=== PATIENT | male | born 1975 | race Caucasian/White ===

== ENCOUNTER 2019-03-23 03:25 | Emergency (ER) | payer BC, OTHER ==
[2019-03-23 04:45] LABS: ABSOLUTE BASOPHILS # (AUTO) 0.1 10^3/uL (0.0-0.2); ABSOLUTE EOSINOPHILS # (AUTO) 0.4 10^3/uL (0.0-0.6); ABSOLUTE LYMPHOCYTES (AUTO) 2.1 10^3/uL (0.5-4.7); ABSOLUTE MONOCYTES (AUTO) 0.8 10^3/uL (0.1-1.4); ABSOLUTE NEUT (AUTO) 3.2 10^3/uL (1.7-8.2); BASOPHILS % (AUTO) 0.8 % (0-2); EOSINOPHILS % (AUTO) 5.9 % (0-6); HEMATOCRIT 47.8 % (37.9-51.0); HEMOGLOBIN 16.6 g/dL (13.5-17.0); LYMPHOCYTES % (AUTO) 32.4 % (13-45); MEAN CORPUSCULAR HEMOGLOBIN 32.3 pg (27.0-33.4); MEAN CORPUSCULAR HGB CONC 34.8 g/dL (32.0-36.0); MEAN CORPUSCULAR VOLUME 93 fl (80-97); MONOCYTES % (AUTO) 11.7 % (3-13); PLATELET COUNT 297 10^3/uL (150-450); RED BLOOD COUNT 5.15 10^6/uL (4.35-5.55); RED CELL DISTRIBUTION WIDTH 13.2 % (11.5-14.0); SEGMENTED NEUTROPHILS % (AUTO) 49.2 % (42-78); TOTAL CELLS COUNTED % (AUTO) 100 %; WHITE BLOOD COUNT 6.5 10^3/uL (4.0-10.5)
[2019-03-23 04:54] LABS: ALKALINE PHOSPHATASE 45 U/L (38-126); ANION GAP 8 (5-19); ASPARTATE AMINO TRANSFERASE 43 U/L (17-59); BILIRUBIN,TOTAL 0.4 mg/dL (0.2-1.3); BLOOD UREA NITROGEN 15 mg/dL (7-20); CALCIUM 9.9 mg/dL (8.4-10.2); CARBON DIOXIDE 29 mmol/L (22-30); CHLORIDE 101 mmol/L (98-107); CREATINE KINASE 332 U/L (55-170); GLUCOSE 89 mg/dL (75-110); POTASSIUM 4.2 mmol/L (3.6-5.0); TOTAL PROTEIN 6.8 g/dL (6.3-8.2)
[2019-03-23 05:04] LABS: CREATINE KINASE MB 1.18 ng/mL (<4.55)
[2019-03-23 05:06] LABS: TROPONIN I < 0.012 ng/mL
--- NOTE | 2019-03-23 05:17 | RADIOLOGY REPORT (SQ) ---
EXAM DESCRIPTION: XR CHEST 2 VIEWS COMPLETED DATE/TME: 03/23/2019 00:00 CLINICAL HISTORY: 44 years, Male, CHEST PAIN COMPARISON: None. NUMBER OF VIEWS: Two TECHNIQUE: Two views of the chest LIMITATIONS: None. FINDINGS: The lungs are clear. The heart is normal in size. There is no pneumothorax or pleural effusion. There is no fracture IMPRESSION: No acute cardiopulmonary abnormality. copyright 2010 [employer] All Rights Reserved
--- NOTE | 2019-03-23 10:27 | ER Document Report ---
ED General - General Chief Complaint: Chest Pain Stated Complaint: CHEST PAIN,DIFFICULTY BREATHING Time Seen by Provider: 03/23/19 10:05 Mode of Arrival: Ambulatory Information source: Patient Notes: 44-year-old white male arrives after having anterior chest pain which began as left superior scapular pain around midnight hours patient has a history of atrial fibrillation and has been evaluated on and off for 1 year after he retired from the . He has been evaluated at [facility] and was last seen 1 month ago. Patient's lab were positive for CPK but troponins were negative x2. Patient continues to have pain with shortness of breath and diaphoresis for the last 7 hours. His pain is 8 out of 10. For this reason I called Dr. Brantley spine supervisor at 1015 and he advised CTA to rule out any vascular lesion associated with weight lifting. Patient reports he has pain medicine intolerance because of 9 surgeries in the past to include right upper arm with plates and screws and low back surgery. He is tried multiple medicines including Toradol and Atarax and Bentyl without relief. [place] but is willing to do the CT scan today. His blood pressure was elevated and he takes Adderall and has a history of having erroneous BPs because of his large arms" TRAVEL OUTSIDE OF THE [place] IN LAST 30 DAYS: No - HPI Onset: This morning Onset/Duration: Sudden Quality of pain: Achy Severity: Severe Pain Level: 5 Associated symptoms: Body/muscle aches, Chest pain, Hurts to breath, Shortness of breath, Sweating. denies: Allergy/hay fever, Chills, Nonproductive cough, Productive cough, Diarrhea, Nausea, Vomiting Exacerbated by: Denies Relieved by: Denies Similar symptoms previously: Yes Recently seen / treated by doctor: Yes - Related Data Allergies/Adverse Reactions: No Known Allergies Allergy (Verified 03/23/19 03:45) Home Medications: ADDERALL Past Medical History - General Information source: Patient - Social History Smoking Status: Never Smoker Cigarette use (# per day): No Chew tobacco use (# tins/day): No Smoking Education Provided: No Frequency of alcohol use: Occasional Drug Abuse: None Lives with: Family Family History: Reviewed & Not Pertinent Patient has suicidal ideation: No Patient has homicidal ideation: No - Past Medical History Cardiac Medical History: Reports: Hx Atrial Fibrillation Pulmonary Medical History: Reports: None EENT Medical History: Reports: None Neurological Medical History: Reports: None, Hx Migraine Psychiatric Medical History: Reports: Hx Depression Past Surgical History: Reports: Hx Orthopedic Surgery - right arm - Immunizations Hx Diphtheria, Pertussis, Tetanus Vaccination: Yes Review of Systems - Review of Systems Constitutional: See HPI EENT: No symptoms reported Cardiovascular: Chest pain, Palpitations Respiratory: See HPI, Short of breath Gastrointestinal: No symptoms reported Genitourinary: No symptoms reported Male Genitourinary: No symptoms reported Musculoskeletal: Back pain - Left superior scapular pain as well as associated left anterior chest pain Skin: No symptoms reported Hematologic/Lymphatic: No symptoms reported Neurological/Psychological: No symptoms reported Physical Exam - Vital signs Vitals: Temp Pulse Resp BP Pulse Ox 98.6 F 84 16 170/96 H 96 03/23/19 03:53 03/23/19 03:53 03/23/19 03:53 03/23/19 03:53 03/23/19 03:53 Interpretation: Hypertensive - General General appearance: Alert In distress: Mild - HEENT Head: Normocephalic Eyes: Normal Conjunctiva: Normal Cornea: Normal Extraocular movements intact: Yes Eyelashes: Normal Pupils: PERRL Ears: Normal Sinus: Normal Nasal: Normal Mouth/Lips: Normal - Respiratory Respiratory status: No respiratory distress Chest status: Nontender Breath sounds: Normal Chest palpation: Normal - Cardiovascular Rhythm: Irregularly irregular Heart sounds: Normal auscultation Murmur: No Friction rub: No Lux's crunch: No - Abdominal Inspection: Normal Distension: No distension Bowel sounds: Normal Tenderness: Nontender Organomegaly: No organomegaly - Back Back: Normal - Extremities General upper extremity: Normal inspection General lower extremity: Normal inspection Shoulder: Normal Arm: Normal Elbow: Normal Forearm: Normal - Neurological Neuro grossly intact: Yes Cognition: Normal Orientation: AAOx4 Noa Coma Scale Eye Opening: Spontaneous [place] Coma Scale Verbal: Oriented Speech: Normal Cranial nerves: Normal - Psychological Associated symptoms: Normal affect - Skin Skin Temperature: Warm Course - Vital Signs Vital signs: Temp Pulse Resp BP Pulse Ox 98.6 F 80 16 143/92 H 98 03/23/19 03:53 03/23/19 10:44 03/23/19 10:44 03/23/19 10:44 03/23/19 10:44 - Laboratory Result Diagrams: 03/23/19 04:15 03/23/19 04:15 Laboratory results interpreted by me: 03/23/19 04:15 Creatine Kinase 332 H Critical Care Note - Critical Care Note Total time excluding time spent on procedures (mins): 90 Comments: I advised the patient to follow-up with Dr. Brantley spine supervisor and also will need BP medicines if continues to have hypertension. Left the patient has chosen to leave the facility against medical advice. The relevant issues have been reviewed and discussed with the patient and family at the bedside. At the time of this assessment there is no indication for involuntary commitment. The patient is alert, oriented, and able to express clearly their reasoning for not wanting to remain in the emergency department for further treatment. The patient is not clinically psychotic, intoxicated, and denies and suicidal ideation. Differential or suspected diagnoses based on medical screening exam: . The patient is aware of the concerning diagnoses and acknowledges understanding of the reasons for the following recommendations: The following recommendations/services were offered and refused: The following risks were explained: , permanent disability, loss of function Clinical impression: Patient is competent to make decisions regarding the medical that is being offered. Discharge - Discharge Clinical Impression: Chest pain at rest, Elevated CPK Hypertension Qualifiers: Hypertension type: unspecified Qualified Code(s): I10 - Essential (primary) hypertension Condition: Fair Disposition: AGAINST MEDICAL ADVICE Additional Instructions: Follow-up with with Dr. Brantley in his office return to ER as needed take medicines as directed and to ER as needed call back for CT results because you are signing out AMA Prescriptions: Lisinopril/Hydrochlorothiazide [Lisinopril-Hctz 20-25 mg Tab] 1 each PO DAILY #30 tablet Etodolac [Lodine] 400 mg PO BID #14 tablet Chlorzoxazone [Parafon Forte Dsc 500 Mg Tablet] 500 mg PO BID PRN 7 Days #14 tablet PRN Reason:
[2019-03-23] MEDS ORDERED: KETOROLAC TROMETHAMINE INJ/PF 30 MG/1 ML SDV IV ONE (10:43)
[2019-03-23 10:44] VITALS: BP 143/92
--- NOTE | 2019-03-23 13:18 | RADIOLOGY REPORT (SQ) ---
EXAM DESCRIPTION: CTA CHEST COMPLETED DATE/TIME: 03/23/2019 11:56 am REASON FOR STUDY: cp COMPARISON: None. TECHNIQUE: CT scan of the chest performed using helical scanning technique with dynamic intravenous contrast injection. Images reviewed with lung, soft tissue and bone windows. Reconstructed coronal and sagittal MPR images reviewed. Additional 3 dimensional post-processing performed to develop Maximal Intensity Projection images (ME P). All images stored on PACS. All CT scanners at this facility use dose modulation, iterative reconstruction, and/or weight based d osing when appropriate to reduce radiation dose to as low as reasonably achievable (ALARA). [facility]: Dose Right [facility]: CareDose [facility]: Dose Right [facility]: Teradose 4D [facility]: Smart [place] [employer] CONTRAST TYPE AND DOSE: Contrast bolus optimized for the pulmonary arteries. Not diagnostic for the aorta. RENAL FUNCTION: None required. The patient is less than 50 years old. RADIATION DOSE: . LIMITATIONS: None. FINDINGS: LUNGS AND PLEURA: Incidental subpleural right middle lobe nodule measuring less than 5 mm. Image 90/146. Otherwise, no masses, infiltrates, or pneumothorax. No pleural effusions or pleural calcifications. AORTA AND GREAT VESSELS: No aneurysm. Contrast bolus not optimized for the aorta. HEART: No pericardial effusion. No significant coronary artery calcifications. PULMONARY ARTERIES: No emboli visualized in the main pulmonary arteries or the segmental branches. HILAR AND MEDIASTINAL STRUCTURES: No identified masses or abnormal nodes. HARDWARE: None in the chest. UPPER ABDOMEN: No significant findings. Limited exam. THYROID AND OTHER SOFT TISSUES: No masses. No adenopathy. BONES: No acute or significant finding. 3D MIPS: Confirm above findings. OTHER: No other significant finding. IMPRESSION: 1. No vascular pathology in the chest. Aorta normal. No pulmonary embolus. 2. No acute lung infiltrates. 3. Sub 5 mm right middle lobe lung nodule, doubtful clinical significance. See below recommendations . FLEISCHNER CRITERIA FOR FOLLOW-UP OF PULMONARY NODULES Incidentally detected new nodules in persons 35 or older. HIGH RISK: History of smoking or other known risk factors. <6 mm single solid nodule: LOW RISK: no routine followup. HIGH RISK: optional CT 12 mo. COMMENT: Quality ID # [id number]: Final reports with documentation of one or more dose reduction techniques (e.g., Automated exposure control, adjustment of the mA and/or kV according to patient size, use of iterative reconstruction technique) TECHNICAL DOCUMENTATION: JOB ID: [id number] 2010 [employer] All Rights Reserved Reading location - IP/workstation name: [email or web address]
--- NOTE | 2019-03-23 20:15 | EKG REPORT ---
SEVERITY:- NORMAL ECG - SINUS RHYTHM : Confirmed by: Bryon Puente MD 23-Mar-2019 20:14:50
== END 2019-03-23 12:16 | disposition left against medical advice (07) ==
LOC: ER 03:25
DX: R79.89 Other specified abnormal findings of blood chemistry (principal); R07.9 Chest pain, unspecified; R06.00 Dyspnea, unspecified; R00.2 Palpitations; M79.10 Myalgia, unspecified site; I48.91 Unspecified atrial fibrillation
CPT/HCPCS: 93005; 99291; 99292; 96374; 36415; 82553; 82550; 85025; 80053; 84484; 71046; 71275; 93010; J1885

== ENCOUNTER → 2019-11-29 | Outpatient (CLI) | payer BC, OTHER ==
--- NOTE | 2019-11-29 09:32 | RADIOLOGY REPORT (SQ) ---
EXAM DESCRIPTION: CT CHEST WITH IMAGES COMPLETED DATE/TIME: 11/29/2019 9:15 am REASON FOR STUDY: R93.89 ABNORMAL FINDINGS ON DX IMAGING OF [facility] BODY STRUCTURES R93.89 ABNORMAL FIN DINGS ON DX IMAGING OF [facility] BODY STRUCTURE COMPARISON: 03/23/2019. TECHNIQUE: CT scan of the chest performed using helical scanning technique with dynamic intravenous contrast injection. Images reviewed with lung, soft tissue and bone windows. Reconstructed coronal and sagittal MPR and MIP images reviewed. All images stored on PACS. All CT scanners at this facility use dose modulation, iterative reconstruction, and/or weight based d osing when appropriate to reduce radiation dose to as low as reasonably achievable (ALARA). [facility]: Dose Right [facility]: CareDose [facility]: Dose Right [facility]: Teradose 4D [facility]: [employer] CONTRAST TYPE AND DOSE: contrast/concentration: Isovue 350.00 mmol/ml; Total Contrast Delivered: 80. 0 ml; Total Saline Delivered: 55.0 ml RENAL FUNCTION: Creatinine 1.2. RADIATION DOSE: CT Rad equipment meets quality standard of care and radiation dose reduction techniq ues were employed. CTDIvol: 10.5 mGy. DLP: 505 mGy-cm. . LIMITATIONS: None. FINDINGS: LUNGS AND PLEURA: Stable subpleural nodule in the anterior right middle lobe, current jason urement 4.0 mm (axial series 4, image 100). On the prior study this measured 4.6 mm. There is a 3.1 mm subpleural nodule in the lateral left lower lobe (axial series 4, image 98). On th e prior study this measured approximately 2 mm. Adjacent to this nodule is a tiny, 1 mm, nodule which appears unchanged (axial series 4, image 99). No pneumothorax. No effusions. HILAR AND MEDIASTINAL STRUCTURES: No identified masses or abnormal nodes. HEART AND VASCULAR STRUCTURES: No aneurysm or dissection. No central pulmonary emboli. No pericardi al effusion. HARDWARE: None in the chest. UPPER ABDOMEN: No significant findings. Limited exam. THYROID AND OTHER SOFT TISSUES: No masses. No adenopathy. BONES: No significant finding. OTHER: No other significant finding. IMPRESSION: SMALL PULMONARY NODULES DESCRIBED. CONSIDER FOLLOW-UP BASED ON FLEISCHNER CRITERIA. NO OTHER SIGNIFICANT FINDINGS. COMMENT: FLEISCHNER CRITERIA FOR FOLLOW-UP OF PULMONARY NODULES Incidentally detected new nodules in persons 35 or older. HIGH RISK: History of smoking or other known risk factors. <6 mm multiple solid nodules: LOW RISK: no routine followup. HIGH RISK: optional CT 12 mo. TECHNICAL DOCUMENTATION: JOB ID: [id number] Quality ID # [id number]: Final reports with documentation of one or more dose reduction techniques (e.g., Au tomated exposure control, adjustment of the mA and/or kV according to patient size, use of iterative reconstruction technique) 2010 [employer]- All Rights Reserved Reading location - IP/workstation name: [email or web address]
== END ==
LOC: RAD 08:57
PROVIDERS: ATTEND Physician Assistant
DX: R91.8 Other nonspecific abnormal finding of lung field (principal)
CPT/HCPCS: 71260; 82565